=== PATIENT | female | born 1985 | race Caucasian/White ===

== ENCOUNTER 2021-02-12 23:05 | Emergency (ER) | payer OTHER ==
[~2021-02-12] VITALS: Ht 177.8 cm; Wt 68.2 kg
[2021-02-12 23:07] VITALS: BP 122/88
== END 2021-02-13 02:13 | disposition home or self-care (01) ==
LOC: EMS 23:05
DX: F22 Delusional disorders (principal); B83.9 Helminthiasis, unspecified; F17.200 Nicotine dependence, unspecified, uncomplicated
CPT/HCPCS: 99281; Z7502

== ENCOUNTER 2021-12-30 07:34 | Emergency (ER) | payer OTHER ==
[~2021-12-30] VITALS: Ht 177.8 cm; Wt 72.7 kg
[2021-12-30 08:03] VITALS: BP 120/86
[2021-12-30] MEDS ORDERED: ASPIRIN 325 MG TABLET PO ONE (09:15)
[2021-12-30] MEDS ORDERED: ALPRAZolam 0.25 MG TABLET PO ONE (09:15)
[2021-12-30] MEDS: ALPRAZolam 1 MG TABLET PO ONE ×2 (09:39→10:32)
[2021-12-30] MEDS ORDERED: NICOTINE 21 MG/24 HOUR PATCH TD ONE (10:00)
== END 2021-12-30 11:43 ==
LOC: EMS 07:36
DX: T19.2XXA Foreign body in vulva and vagina, initial encounter (principal); T18.5XXA Foreign body in anus and rectum, initial encounter; F15.10 Other stimulant abuse, uncomplicated; F31.9 Bipolar disorder, unspecified; X58.XXXA Exposure to other specified factors, initial encounter; Y93.89 Activity, other specified; Y92.89 Other specified places as the place of occurrence of the external cause; Y99.8 Other external cause status
CPT/HCPCS: 99291; Z7502; Z7610